=== PATIENT | female | born 1945 | race Caucasian/White ===

== ENCOUNTER 2018-09-13 10:49 | Observation (INO) | payer MEDICARE, OTHER ==
[~2018-09-13] VITALS: Ht 165.1 cm; Wt 76.9 kg
--- OUTSIDE RECORDS SUMMARY | 2018-09-13 10:54 | XMS REPORT ---
Author Author [facility] Address Unknown Phone Unavailable Care Team Providers Care Cleaning Crew Member Name Role Phone Unavailable Unavailable Payers Payer Name Policy Type Policy Number Effective Date Expiration Date Problems This patient has no known problems. Allergies, Adverse Reactions, Alerts Allergy Name Allergy Type Status Severity Reaction(s) Onset Date Inactive Date Treating Clinician Comments codeine DA Active U 2016-05-17 00:00:00 warfarin sodium DA Active SV 2011-05-30 00:00:00 Medications This patient has no known medications. Encounters Start Date/Time End Date/Time Encounter Type Admission Type Attending Clinicians Care Facility Care Department Encounter ID 2005-11-10 14:02:00 Inpatient C [facility] [id number]
[2018-09-13 11:50] LABS: BASOPHILS # (AUTO) 0.1 (0.0-0.1); BASOPHILS % 0.4 % (0.0-1.0); EOSINOPHILS # (AUTO) 0.3 (0.0-0.4); EOSINOPHILS % 2.5 % (0.0-6.0); HEMOGLOBIN 7.7 g/dL (12.0-16.0); LYMPHOCYTES # (AUTO) 2.3 (1.0-3.2); LYMPHOCYTES % 20.2 % (18.0-39.1); MEAN CORPUSCULAR HEMOGLOBIN 16.7 pg (28-32); MEAN CORPUSCULAR HGB CONC 25.7 g/dL (31-35); MEAN CORPUSCULAR VOLUME 64.9 fL (81-99); MONOCYTES # (AUTO) 0.8 (0.2-0.8); MONOCYTES % 7.3 % (4.4-11.3); NEUTROPHILS # (AUTO) 7.7 (2.1-6.9); NEUTROPHILS % 69.2 % (38.7-80.0); PLATELET COUNT 286 x10e3/uL (140-360); RED BLOOD COUNT 4.62 x10e6/uL (3.6-5.1); RED CELL DISTRIBUTION WIDTH 20.9 % (11.7-14.4)
[2018-09-13] MEDS ORDERED: PANTOPRAZOLE 40 MG 10ML VIAL IV STA (11:51)
[2018-09-13 11:58] LABS: INR 1.33; PROTHROMBIN TIME 17.6 seconds (11.9-14.5)
[2018-09-13 11:59] LABS: PARTIAL THROMBOPLASTIN TIME 34.4 seconds (23.8-35.5)
[2018-09-13] MEDS ORDERED: ALBUTEROL/IPRATROPIUM 3 ML NEB NEB ONE (12:00)
[2018-09-13] MEDS ORDERED: SODIUM CHLORIDE 0.9% 500ML 500 ML IV ONE (12:00)
[2018-09-13 12:08] LABS: ALBUMIN 3.2 g/dL (3.5-5.0); ALBUMIN/GLOBULIN RATIO 0.9 (0.8-2.0); ANION GAP 16.2 mmol/L (8-16); CALCIUM 9.5 mg/dL (8.4-10.2); CREATININE, SERUM 1.2 mg/dL (0.57-1.11); POTASSIUM 4.2 mmol/L (3.5-5.1)
[2018-09-13 12:13] LABS: CREATINE KINASE MB 1.2 ng/mL (0-5.0)
[2018-09-13] MEDS ORDERED: ELIQUIS PO (12:26)
[2018-09-13] MEDS ORDERED: VITAMIN D35000 UNI1 PO (12:26)
[2018-09-13] MEDS ORDERED: ASPIR 8181 MG PO (12:26)
[2018-09-13] MEDS ORDERED: METOPROLOL SUCC50 MG PO (12:26)
[2018-09-13] MEDS ORDERED: LEVEMIR100 UNIT/1 SQ ×2 (12:26)
[2018-09-13] MEDS ORDERED: CYMBALTA20 MG PO (12:26)
[2018-09-13] MEDS ORDERED: LISINOPRIL10 MG PO (12:26)
[2018-09-13] MEDS ORDERED: STOOL SOFTENER1 EAC2 PO (12:26)
[2018-09-13] MEDS ORDERED: TYLENOL WITH C1 EAC1 PO (12:26)
[2018-09-13] MEDS ORDERED: VITAMIN C500 MG PO (12:26)
[2018-09-13] MEDS ORDERED: FUROSEMIDE40 MG PO (12:26)
[2018-09-13 12:59] LABS: BILIRUBIN,URINE NEGATIVE (NEGATIVE); CLARITY,URINE SL CLOUDY (CLEAR); COLOR,URINE YELLOW (YELLOW); KETONES,URINE NEGATIVE (NEGATIVE); LEUKOCYTE ESTERASE ,URINE TRACE (NEGATIVE); NITRITE,URINE NEGATIVE (NEGATIVE); PROTEIN,URINE DIPSTICK NEGATIVE (NEGATIVE); URINE UROBILINOGEN 0.2 mg/dL (0.2 - 1)
[2018-09-13] MEDS ORDERED: SODIUM CHLORIDE 0.9% 250ML 250 ML IV ONE (13:00)
[2018-09-13] MEDS ORDERED: ONDANSETRON HCL INJ 2 MG/ML VIAL IV PRN (13:00)
[2018-09-13] MEDS ORDERED: SODIUM CHLORIDE FLUSH 10 ML SYR INJ PRN (13:00)
[2018-09-13 13:19] LABS: BACTERIA,URINE MODERATE /HPF; EPITHELIAL CELLS,URINE MODERATE /LPF
[2018-09-13] MEDS ORDERED: SODIUM CHLORIDE 0.9% 250ML 250 ML ONE (13:59)
[2018-09-13 15:29] VITALS: BP 188/79
[2018-09-13 16:16] VITALS: BP 167/74
[2018-09-13] MEDS: BALSAM PERU/CASTOR OIL 60 GM OINT...G. TP SCH (16:16)
[2018-09-13] MEDS: PANTOPRAZOL 40MG/SOD CHL 0.9% 50 ML IV SCH ×2 (17:45→21:17)
[2018-09-13 20:00] VITALS: BP 190/80
[2018-09-13] MEDS ORDERED: NON-FORMULARY MEDICATION (Ascorbic Acid (Vitamin C) 1 CAP) PO SCH (21:00)
[2018-09-13] MEDS ORDERED: INSULIN DETEMIR 70 UNIT SQ SCH (21:00)
[2018-09-13] MEDS: ASCORBIC ACID 500 MG TAB PO SCH (21:33)
[2018-09-13] MEDS: DULOXETINE HCL 20 MG DELAYED RELEASE PO SCH (21:33)
[2018-09-13] MEDS: INSULIN DETEMIR 100 UNIT/ML PEN SQ SCH (21:33)
[2018-09-13] MEDS: ACETAMINOPHEN/CODEINE 300MG - 30MG TAB PO PRN (21:35)
[2018-09-14] VITALS (8 sets, daily range): BP systolic 135–183; BP diastolic 74–81
[2018-09-14] MEDS ORDERED: NON-FORMULARY MEDICATION (Acetaminophen With Codeine (Tylenol With Codeine #4 Tablet) 1 TA PO SCH
[2018-09-14] MEDS ORDERED: ACETAMINOPHEN/CODEINE 300MG - 30MG TAB PO SCH
[2018-09-14] MEDS: PANTOPRAZOL 40MG/SOD CHL 0.9% 50 ML IV SCH ×5 (02:35→22:21)
[2018-09-14 05:45] LABS: BASOPHILS % 0.5 % (0.0-1.0); EOSINOPHILS # (AUTO) 0.3 (0.0-0.4); EOSINOPHILS % 3.5 % (0.0-6.0); HEMATOCRIT 28.2 % (34.2-44.1); HEMOGLOBIN 7.5 g/dL (12.0-16.0); LYMPHOCYTES % 24.1 % (18.0-39.1); MEAN CORPUSCULAR HEMOGLOBIN 17.5 pg (28-32); MEAN CORPUSCULAR HGB CONC 26.6 g/dL (31-35); MEAN CORPUSCULAR VOLUME 65.9 fL (81-99); MONOCYTES # (AUTO) 0.6 (0.2-0.8); MONOCYTES % 6.6 % (4.4-11.3); NEUTROPHILS # (AUTO) 5.4 (2.1-6.9); NEUTROPHILS % 64.9 % (38.7-80.0); PLATELET COUNT 232 x10e3/uL (140-360); RED BLOOD COUNT 4.28 x10e6/uL (3.6-5.1); RED CELL DISTRIBUTION WIDTH 20.9 % (11.7-14.4)
--- NOTE | 2018-09-14 05:49 | Diagnostic Imaging Report ---
CHEST SINGLE (PORTABLE), 09/14/2018 7:00 AM Technique: CHEST SINGLE (PORTABLE) Comparison: None available. Clinical history: Shortness of breath Findings: Single portable radiograph of the chest. Impression: 1. Mildly enlarged cardiac silhouette status post median sternotomy. Broken superior sternotomy wire. 2. Central vascular congestion. No consolidation. 3. No effusion or pneumothorax. Signed by: Dr Linh Daniel MD on 09/14/2018 5:46 AM
[2018-09-14 06:05] LABS: ANION GAP 14.6 mmol/L (8-16); CREATININE, SERUM 1.11 mg/dL (0.57-1.11); POTASSIUM 3.6 mmol/L (3.5-5.1)
[2018-09-14 06:28] LABS: CREATINE KINASE MB 0.9 ng/mL (0-5.0)
[2018-09-14 06:34] LABS: HEMATOCRIT 28.3 % (34.2-44.1); HEMOGLOBIN 7.6 g/dL (12.0-16.0)
[2018-09-14 07:29] LABS: BAND NEUTROPHILS % (MANUAL) 2 %; MONOCYTES % (MANUAL) 5 % (3.4-9.0); NEUTROPHILS % (MANUAL) 69 % (40-74)
[2018-09-14 07:30] LABS: EOSINOPHILS % (MANUAL) 3 % (0-7); LYMPHOCYTES % (MANUAL) 21 % (19-48); PLATELET ESTIMATE ADEQUATE; PLATELET MORPHOLOGY COMMENT NORMAL
[2018-09-14] MEDS: INSULIN DETEMIR 100 UNIT/ML PEN SQ SCH ×2 (07:30→20:56)
[2018-09-14] MEDS ORDERED: INSULIN REGULAR, HUMAN 100 UNIT/1 ML 3ML VIAL SQ SCH (07:30)
[2018-09-14] MEDS ORDERED: INSULIN DETEMIR 100 UNIT SQ SCH (07:30)
[2018-09-14 07:31] LABS: HYPOCHROMASIA MODERATE; POLYCHROMASIA FEW
[2018-09-14 07:32] LABS: MICROCYTOSIS SLIGHT; OVALOCYTES FEW; RBC MORPHOLOGY COMMENT ABNORMAL
[2018-09-14] MEDS ORDERED: PANTOPRAZOLE 40 MG 10ML VIAL IV SCH (09:00)
[2018-09-14] MEDS ORDERED: NON-FORMULARY MEDICATION ([Eliquis] 5 MG) PO SCH (09:00)
[2018-09-14] MEDS: APIXABAN 5 MG TABLET PO SCH (09:00)
[2018-09-14] MEDS ORDERED: NON-FORMULARY MEDICATION (Cholecalciferol (Vitamin D3) (Vitamin D3) 1 CAP) PO SCH (09:00)
[2018-09-14] MEDS: FUROSEMIDE 40 MG TAB PO SCH (09:05)
[2018-09-14] MEDS: ASPIRIN 81 MG CHEW TAB PO SCH (09:05)
[2018-09-14] MEDS: LISINOPRIL 10 MG TAB PO SCH (09:07)
[2018-09-14] MEDS: METOPROLOL SUCCINATE 50 MG TAB XL PO SCH ×2 (09:08→17:26)
[2018-09-14] MEDS: SENNA-S TABLET PO SCH ×2 (09:08→17:25)
[2018-09-14] MEDS: CHOLECALCIFEROL 1,000 UNIT TAB PO SCH (09:08)
[2018-09-14] MEDS: BALSAM PERU/CASTOR OIL 60 GM OINT...G. TP SCH ×2 (09:08→17:26)
[2018-09-14] MEDS: ACETAMINOPHEN/CODEINE 300MG - 30MG TAB PO PRN ×3 (09:33→23:54)
[2018-09-14] MEDS: INSULIN REGULAR, HUMAN 100 UNIT/1 ML 3ML VIAL SQ SCH ×3 (12:00→20:55)
[2018-09-14] MEDS ORDERED: DEXTROSE 50% SYRINGE 50 ML IV PRN (12:30)
[2018-09-14] MEDS ORDERED: FAMOTIDINE INJ 20 MG in SODIUM CHLORIDE 0.9% 50ML 50 ML IV ONE (13:00)
[2018-09-14] MEDS ORDERED: DIPHENHYDRAMINE HCL INJ 25 MG in SODIUM CHLORIDE 0.9% 50ML 50 ML IV ONE ×2 (13:00→13:45)
[2018-09-14] MEDS ORDERED: IRON DEXTRAN INJ 500 MG in SODIUM CHLORIDE 0.9% 500ML 500 ML IV PRN ×4 (13:00)
[2018-09-14] MEDS ORDERED: DEXAMETHASONE PHOS 10MG INJ 20 MG in SODIUM CHLORIDE 0.9% 50ML 50 ML IV ONE (13:00)
[2018-09-14] MEDS ORDERED: IRON DEXTRAN INJ 50 MG in SODIUM CHLORIDE 0.9% 100 ML IV ONE ×2 (13:00→14:30)
[2018-09-14 13:37] LABS: HEMATOCRIT 28.7 % (34.2-44.1); HEMOGLOBIN 7.5 g/dL (12.0-16.0)
[2018-09-14] MEDS ORDERED: KEFLEX500 MG (14:07)
--- NOTE | 2018-09-14 16:35 | Diagnostic Imaging Report ---
EXAM: CT Abdomen and Pelvis WITH contrast INDICATION: low hbg COMPARISON: None. TECHNIQUE: Abdomen and Pelvis was scanned utilizing a multidetector helical scanner after administration of IV contrast. Coronal and sagittal reformations were obtained. IV CONTRAST: 100 ml Isovue 370 COMPLICATIONS: None RADIATION DOSE: Total DLP:539 mGy*cm Estimated effective dose: (DLP x 0.015 x size factor) mSv CTDIvol has been reviewed. It is below the limits set by the Radiation Protocol Committee (RPC). Appropriate CT dose reduction techniques were utilized. FINDINGS: Abdomen: Lung Bases: No acute findings. Solid Organs: 54mm cyst left kidney. Cholecystectomy clips with reservoir phenomenon. Otherwise unremarkable. Upper GI Tract: Decompressed stomach limits. No SBO changes. Vascularity: IVC filter. Advanced aortic/mesenteric calcifications. Lymph Nodes: None. Other: Subcutaneous nodules/stranding likely from injections. Infection not excluded. Pelvis: Bladder: Unremarkable. Other: Uterus absent. Fat containing inguinal hernias. Colon: No acute. Bones: T11 vertebroplasty changes. Partial fusion L3/4. IMPRESSION: 1. Subcutaneous nodules/stranding likely from injections. Infection not excluded. 2. Other findings as above. Signed by: Dr. Juan Antonio Nelson MD on 09/14/2018 4:32 PM
[2018-09-14] MEDS ORDERED: IOPAMIDOL 370 MG/ML 200 ML INFUS..BTL INJ ONE (17:46)
[2018-09-14] MEDS ORDERED: SODIUM CHLORIDE 0.9% 50ML 50 ML ONE (17:46)
[2018-09-14] MEDS: DULOXETINE HCL 20 MG DELAYED RELEASE PO SCH (20:17)
[2018-09-14] MEDS: ASCORBIC ACID 500 MG TAB PO SCH (20:17)
[2018-09-15] VITALS (7 sets, daily range): BP systolic 133–177; BP diastolic 48–69
[2018-09-15] MEDS: PANTOPRAZOL 40MG/SOD CHL 0.9% 50 ML IV SCH ×5 (03:15→23:15)
[2018-09-15 05:29] LABS: BASOPHILS % 0.1 % (0.0-1.0); HEMATOCRIT 28.4 % (34.2-44.1); HEMOGLOBIN 7.4 g/dL (12.0-16.0); LYMPHOCYTES # (AUTO) 0.8 (1.0-3.2); LYMPHOCYTES % 9.8 % (18.0-39.1); MEAN CORPUSCULAR HEMOGLOBIN 17.3 pg (28-32); MEAN CORPUSCULAR HGB CONC 26.1 g/dL (31-35); MEAN CORPUSCULAR VOLUME 66.5 fL (81-99); MONOCYTES # (AUTO) 0.2 (0.2-0.8); MONOCYTES % 2.9 % (4.4-11.3); NEUTROPHILS # (AUTO) 6.8 (2.1-6.9); NEUTROPHILS % 85.9 % (38.7-80.0); PLATELET COUNT 203 x10e3/uL (140-360); RED BLOOD COUNT 4.27 x10e6/uL (3.6-5.1); RED CELL DISTRIBUTION WIDTH 21.8 % (11.7-14.4)
[2018-09-15 05:57] LABS: ALBUMIN 2.9 g/dL (3.5-5.0); ANION GAP 13.5 mmol/L (8-16); CALCIUM 9.4 mg/dL (8.4-10.2); CREATININE, SERUM 1.12 mg/dL (0.57-1.11); POTASSIUM 4.5 mmol/L (3.5-5.1)
[2018-09-15] MEDS: ACETAMINOPHEN/CODEINE 300MG - 30MG TAB PO PRN ×3 (06:04→18:10)
[2018-09-15] MEDS: INSULIN DETEMIR 100 UNIT/ML PEN SQ SCH ×2 (07:30→21:29)
[2018-09-15 08:03] LABS: FERRITIN 21.21 ng/mL (4.63-204.00)
[2018-09-15] MEDS: LISINOPRIL 10 MG TAB PO SCH (08:56)
[2018-09-15] MEDS: SENNA-S TABLET PO SCH ×2 (08:56→17:00)
[2018-09-15] MEDS: APIXABAN 5 MG TABLET PO SCH (08:56)
[2018-09-15] MEDS: FUROSEMIDE 40 MG TAB PO SCH (08:56)
[2018-09-15] MEDS: ASPIRIN 81 MG CHEW TAB PO SCH (08:56)
[2018-09-15] MEDS: CHOLECALCIFEROL 1,000 UNIT TAB PO SCH (08:57)
[2018-09-15] MEDS: METOPROLOL SUCCINATE 50 MG TAB XL PO SCH ×2 (08:57→18:16)
[2018-09-15] MEDS: BALSAM PERU/CASTOR OIL 60 GM OINT...G. TP SCH ×2 (08:57→16:45)
[2018-09-15] MEDS: INSULIN REGULAR, HUMAN 100 UNIT/1 ML 3ML VIAL SQ SCH ×4 (08:58→21:29)
[2018-09-15] MEDS ORDERED: SODIUM CHLORIDE 0.9% 250ML 250 ML IV ONE (11:15)
[2018-09-15] MEDS ORDERED: FUROSEMIDE INJ 10 MG/ML 2 ML VIAL IV PRN (11:15)
--- NOTE | 2018-09-15 12:45 | Consultation ---
DATE OF CONSULTATION: September 14, 2018 CONSULTATION TO: Dr. Jaimes. HISTORY OF PRESENT ILLNESS: Mimi Sandoval is a 73-year-old white female who has been referred to me for evaluation of anemia. No history of hematochezia, melena, hematuria, hematemesis, hemoptysis. The patient presented with shortness of breath. HISTORY OF PAST ILLNESSES: History of 2 colonoscopies last year for the same problem of anemia were reported normal, history of CABP, history of congestive heart failure, history of pulmonary embolus. The patient has been on Eliquis. The patient also has had left eye hemorrhage, however, prior to Eliquis. SOCIAL HISTORY: Noncontributory. FAMILY HISTORY: Noncontributory. ALLERGIES: REPORTED NONE. MEDICATIONS: At this time. 1. Protonix. 2. Sodium chloride. 3. Aspirin. 4. Lisinopril. 5. Insulin. 6. Cholecalciferol. 7. Metoprolol. 8. Duloxetine. 9. Lasix. 10. Senna. 11. Eliquis. REVIEW OF SYSTEMS HEENT: Normal. CARDIAC: History of CABP, history of pulmonary embolus. RESPIRATORY: History of congestive heart failure. GI: Multiple colonoscopies. : Normal. MUSCULOSKELETAL: Normal. SKIN AND BREASTS: Normal. NEUROENDOCRINE: History of diabetes mellitus. PHYSICAL EXAMINATION GENERAL: A moderately built female, anemic. NECK: No palpable adenopathy. HEART: Within normal limits. LUNGS: Clear. CABP scar is seen. ABDOMEN: Soft. RECTAL AND VAGINAL: Deferred. CENTRAL NERVOUS SYSTEM: Essentially normal. EXTREMITIES: Essentially normal. LABORATORY DATA: Lab shows a hemoglobin of 7.7, hematocrit 30, extremely low MCV of 64.9, low MCHC of 25.7, high RDW of 20.9 with a white count of 11,100, platelets reported at 286,000. The patient's CMP shows a sodium of 139, potassium 4.2, chloride 101, CO2 of 26, BUN 31, creatinine 1.2, calcium 9.5, bilirubin 0.4, SGOT 36, SGPT 10, alkaline phosphatase 99. BNP high at 722. Total protein of 6.6, albumin 3.2. IMAGING: Consists of a chest x-ray, which showed mildly enlarged cardiac silhouette, broken sternotomy wire, central vascular congestion. IMPRESSION 1. Iron deficiency anemia. 2. Hypoalbuminemia. 3. Congestive heart failure. 4. Urinary tract infection. 5. Anticoagulated. 6. Community-acquired bacterial pneumonia. 7. Diabetes mellitus, insulin-dependent. 8. Hypertension. 9. History of pulmonary embolus. 10. Possible arteriovenous malformation of the gastrointestinal tract. PLAN, COMMENTS AND SUGGESTIONS: Suggest Infed. GI and workup by CAT scan of the abdomen and pelvis which was done which was reported essentially normal. The patient did tolerate the Infed. I will calculate the amount of Infed to be given with a nomogram at the office. Second Infed will be approximately a month at my office. Thank you very much for allowing me to participate in management of this patient. Job#: [id number] STY cc:THADDEUS JAIMES MD
[2018-09-15] MEDS: HYDRALAZINE HCL 20 MG/ML VIAL IV PRN (14:12)
[2018-09-15] MEDS: DULOXETINE HCL 20 MG DELAYED RELEASE PO SCH (21:28)
[2018-09-15] MEDS: ASCORBIC ACID 500 MG TAB PO SCH (21:28)
[2018-09-16] VITALS: BP 144/62
[2018-09-16] MEDS: ACETAMINOPHEN/CODEINE 300MG - 30MG TAB PO PRN ×3 (00:24→12:10)
[2018-09-16 04:00] VITALS: BP 168/71
[2018-09-16] MEDS: PANTOPRAZOL 40MG/SOD CHL 0.9% 50 ML IV SCH ×2 (04:15→10:17)
[2018-09-16] MEDS ORDERED: CEFTRIAXONE SOD 1 GM VIAL IV SCH (04:30)
[2018-09-16 04:53] LABS: HEMATOCRIT 32.6 % (34.2-44.1); HEMOGLOBIN 8.9 g/dL (12.0-16.0); MEAN CORPUSCULAR HEMOGLOBIN 18.8 pg (28-32); MEAN CORPUSCULAR HGB CONC 27.3 g/dL (31-35); MEAN CORPUSCULAR VOLUME 68.8 fL (81-99); PLATELET COUNT 251 x10e3/uL (140-360); RED BLOOD COUNT 4.74 x10e6/uL (3.6-5.1); RED CELL DISTRIBUTION WIDTH 22.9 % (11.7-14.4)
[2018-09-16 05:09] LABS: ANION GAP 11.6 mmol/L (8-16); CALCIUM 9.6 mg/dL (8.4-10.2); CREATININE, SERUM 1.28 mg/dL (0.57-1.11); POTASSIUM 3.6 mmol/L (3.5-5.1)
[2018-09-16] MEDS ORDERED: DIPHENHYDRAMINE HCL 25 MG CAP PO PRN (05:15)
[2018-09-16 06:27] LABS: BAND NEUTROPHILS % (MANUAL) 2 %; EOSINOPHILS % (MANUAL) 2 % (0-7); LYMPHOCYTES % (MANUAL) 13 % (19-48); MONOCYTES % (MANUAL) 4 % (3.4-9.0); NEUTROPHILS % (MANUAL) 79 % (40-74)
[2018-09-16 06:28] LABS: ANISOCYTOSIS SLIGHT; OVALOCYTES FEW; POIKILOCYTOSIS MODERATE
[2018-09-16 06:29] LABS: ELLIPTOCYTE, RBC SLIGHT; HYPOCHROMASIA SLIG; POLYCHROMASIA FEW
[2018-09-16 06:30] LABS: PLATELET ESTIMATE SLIGHTLY INCREASED; PLATELET MORPHOLOGY COMMENT FEW LARGE; RBC MORPHOLOGY COMMENT ABNORMAL
[2018-09-16 07:18] VITALS: BP 137/65
[2018-09-16 08:50] VITALS: BP 137/65
[2018-09-16] MEDS: BALSAM PERU/CASTOR OIL 60 GM OINT...G. TP SCH (08:50)
[2018-09-16] MEDS: FUROSEMIDE 40 MG TAB PO SCH (08:50)
[2018-09-16] MEDS: LISINOPRIL 10 MG TAB PO SCH (08:50)
[2018-09-16] MEDS: SENNA-S TABLET PO SCH (08:50)
[2018-09-16] MEDS: INSULIN DETEMIR 100 UNIT/ML PEN SQ SCH (08:50)
[2018-09-16] MEDS: ASPIRIN 81 MG CHEW TAB PO SCH (08:50)
[2018-09-16] MEDS: METOPROLOL SUCCINATE 50 MG TAB XL PO SCH (08:50)
[2018-09-16] MEDS: CHOLECALCIFEROL 1,000 UNIT TAB PO SCH (08:50)
[2018-09-16] MEDS: APIXABAN 5 MG TABLET PO SCH (08:50)
[2018-09-16] MEDS: INSULIN REGULAR, HUMAN 100 UNIT/1 ML 3ML VIAL SQ SCH ×2 (08:50→11:30)
[2018-09-16 11:45] VITALS: BP 184/77
[2018-09-16] MEDS: HYDRALAZINE HCL 20 MG/ML VIAL IV PRN (12:27)
[2018-09-16 13:30] VITALS: BP 128/59
== END 2018-09-16 15:45 | disposition home or self-care (01) ==
LOC: ER 10:49 → ERHOLD 14:41 → IMCU 14:53
PROVIDERS: ADMIT Internal Medicine; ATTEND Internal Medicine
DX: D50.9 Iron deficiency anemia, unspecified (principal); N39.0 Urinary tract infection, site not specified; E88.09 Other disorders of plasma-protein metabolism, not elsewhere classified; E11.22 Type 2 diabetes mellitus with diabetic chronic kidney disease; I13.0 Hypertensive heart and chronic kidney disease with heart failure and stage 1 through stage 4 chronic kidney disease, or unspecified chronic kidney disease; I50.9 Heart failure, unspecified; N18.3 Chronic kidney disease, stage 3 (moderate); Z79.4 Long term (current) use of insulin; J44.9 Chronic obstructive pulmonary disease, unspecified; I25.10 Atherosclerotic heart disease of native coronary artery without angina pectoris; K21.9 Gastro-esophageal reflux disease without esophagitis; Z95.1 Presence of aortocoronary bypass graft; Z86.711 Personal history of pulmonary embolism; Z86.718 Personal history of other venous thrombosis and embolism; Z79.82 Long term (current) use of aspirin; Z79.02 Long term (current) use of antithrombotics/antiplatelets; Z88.8 Allergy status to other drugs, medicaments and biological substances
CPT/HCPCS: 36415 ×4; 36430; 71045; 74177; 80048 ×2; 80053 ×2; 81001; 82270; 82550 ×2; 82553 ×2; 82607; 82728; 82948 ×4; 83540; 83880; 84466; 84484 ×2; 85007; 85014; 85018; 85025 ×3; 85027; 85610; 85730; 86850; 86900; 86920; 87086; 87186; 93005 ×2; 94640; 96361; 96372; 97139; 99284; G0378 ×4; J0360 ×2; J0696; J1100; J1200; J1750; J1817; J1940; J7040 ×2; J7050 ×3; P9016 ×2; Q9967; 96360

== ENCOUNTER 2018-10-14 12:58 | Inpatient (IN) | payer MEDICARE, OTHER ==
[~2018-10-14] VITALS: Ht 167.6 cm; Wt 79.1 kg
[~2018-10-14 12:58] MED LIST: ASPIR 8181 MG PO; CYMBALTA20 MG PO; ELIQUIS PO; FUROSEMIDE40 MG PO; KEFLEX500 MG; LEVEMIR100 UNIT/1 SQ; LISINOPRIL10 MG PO; METOPROLOL SUCC50 MG PO; STOOL SOFTENER1 EAC2 PO; TYLENOL WITH C1 EAC1 PO; VITAMIN C500 MG PO; VITAMIN D35000 UNI1 PO
[2018-10-14] MEDS ORDERED: TETANUS/DIPHTHERIA TOX ADULT 0.5 ML SYR IM ONE (14:00)
[2018-10-14] MEDS ORDERED: PIPER-TAZ 3.375 GM 50 ML IV ONE (14:30)
[2018-10-14] MEDS ORDERED: VANCOMYCIN 1GM/NS 250 ML 250 ML IV ONE (14:30)
--- NOTE | 2018-10-14 14:54 | Diagnostic Imaging Report ---
Examination: Single AP view of the chest. COMPARISON: Portable chest 09/14/2018 INDICATION: ] Right foot/Right great toe wound IMPRESSION: 1. Lines and Tubes: None 2. Lungs are grossly clear. No consolidation or effusion. 3. Cardiomediastinal silhouette is normal. Pulmonary vasculature is normal. 4. No acute bony abnormalities. Midline sternotomy wires. Signed by: Dr. Michael Corbin M.D. on 10/14/2018 2:50 PM
--- NOTE | 2018-10-14 14:56 | Diagnostic Imaging Report ---
Exam: Right foot series, 3 views. Clinical History: Right foot, great toe wound, history of diabetes neuropathy Comparison: None. Findings: 3 views of the right foot. There is markedly decreased bone mineralization, which limits evaluation of bony structures.. No acute, displaced fracture or dislocation, within the limitations of the study. No definite evidence of cortical erosion or destruction. Degenerative changes in the interphalangeal joints and midfoot/hindfoot joints. Vascular calcifications. Large posterior and small anterior calcaneal enthesophyte. Orthopedic hardware in the distal tibia likely from prior medial and lateral malleolar fractures No soft tissue defects. Impression: 1. Markedly decreased bone mineralization, which limits evaluation of the bony structures. No definite evidence of cortical erosion or destruction to suggest osteomyelitis or acute, displaced fracture or dislocation, within the limitations of the study. No soft tissue defects. Signed by: Dr. Michael Corbin M.D. on 10/14/2018 2:53 PM
[2018-10-14 15:15] LABS: BILIRUBIN,URINE NEGATIVE (NEGATIVE); CLARITY,URINE SL CLOUDY (CLEAR); COLOR,URINE YELLOW (YELLOW); KETONES,URINE NEGATIVE (NEGATIVE); LEUKOCYTE ESTERASE ,URINE NEGATIVE (NEGATIVE); NITRITE,URINE NEGATIVE (NEGATIVE); PROTEIN,URINE DIPSTICK TRACE (NEGATIVE); URINE UROBILINOGEN 0.2 mg/dL (0.2 - 1)
[2018-10-14 15:24] LABS: BACTERIA,URINE MODERATE /HPF; EPITHELIAL CELLS,URINE MODERATE /LPF; WBC,URINE (MAN) 0-5 /HPF (0-5)
[2018-10-14 15:33] LABS: BASOPHILS # (AUTO) 0.1 (0.0-0.1); BASOPHILS % 0.5 % (0.0-1.0); EOSINOPHILS # (AUTO) 0.2 (0.0-0.4); EOSINOPHILS % 1.9 % (0.0-6.0); HEMATOCRIT 39.2 % (34.2-44.1); HEMOGLOBIN 11.1 g/dL (12.0-16.0); LYMPHOCYTES # (AUTO) 2.5 (1.0-3.2); LYMPHOCYTES % 23.3 % (18.0-39.1); MEAN CORPUSCULAR HEMOGLOBIN 21.8 pg (28-32); MEAN CORPUSCULAR HGB CONC 28.3 g/dL (31-35); MONOCYTES # (AUTO) 0.7 (0.2-0.8); MONOCYTES % 6.3 % (4.4-11.3); NEUTROPHILS # (AUTO) 7.2 (2.1-6.9); NEUTROPHILS % 67.5 % (38.7-80.0); PLATELET COUNT 271 x10e3/uL (140-360); RED BLOOD COUNT 5.09 x10e6/uL (3.6-5.1); RED CELL DISTRIBUTION WIDTH 28.7 % (11.7-14.4)
[2018-10-14 15:38] LABS: INR 1.2; PROTHROMBIN TIME 16.3 seconds (11.9-14.5)
[2018-10-14 15:39] LABS: PARTIAL THROMBOPLASTIN TIME 32.8 seconds (23.8-35.5)
[2018-10-14 15:56] LABS: ALBUMIN 3.1 g/dL (3.5-5.0); ALBUMIN/GLOBULIN RATIO 0.8 (0.8-2.0); ANION GAP 15.4 mmol/L (8-16); CALCIUM 10.2 mg/dL (8.4-10.2); CREATININE, SERUM 1.12 mg/dL (0.57-1.11); MAGNESIUM 1.4 MG/DL (1.3-2.1); POTASSIUM 4.4 mmol/L (3.5-5.1)
[2018-10-14 16:04] LABS: CREATINE KINASE MB 0.8 ng/mL (0-5.0)
[2018-10-14 20:32] LABS: HYPOCHROMASIA MODERATE; PLATELET ESTIMATE ADEQUATE; PLATELET MORPHOLOGY COMMENT NORMAL; RBC MORPHOLOGY COMMENT NORMAL
[2018-10-14] MEDS ORDERED: DEXTROSE 50% SYRINGE 50 ML IV PRN (21:00)
[2018-10-14] MEDS ORDERED: MORPHINE SULFATE 2 MG/ML SYR IV PRN (21:00)
[2018-10-14] MEDS: INSULIN LISPRO 100 UNIT/1 ML 3ML VIAL SQ SCH (21:00)
[2018-10-14] MEDS ORDERED: ONDANSETRON HCL INJ 2 MG/ML VIAL IV PRN (21:00)
[2018-10-14] MEDS ORDERED: PIPER-TAZ 3.375 GM 50 ML ONE (23:43)
[2018-10-14] MEDS ORDERED: TETANUS/DIPHTHERIA TOX ADULT 0.5 ML SYR ONE (23:44)
[2018-10-15] VITALS (8 sets, daily range): BP systolic 125–208; BP diastolic 58–89
[2018-10-15] MEDS ORDERED: HYDROCODONE/APAP 10MG-325MG TAB PO ONE
[2018-10-15] MEDS ORDERED: NIFEDIPINE 10 MG CAP PO ONE (00:44)
[2018-10-15] MEDS ORDERED: NIFEDIPINE 10 MG CAP PO STA (00:54)
[2018-10-15] MEDS ORDERED: fluticasone (01:56)
[2018-10-15] MEDS ORDERED: LYRICA75 MG PO (01:56)
[2018-10-15] MEDS ORDERED: METOPROLOL TART25 MG PO (01:56)
[2018-10-15] MEDS ORDERED: PANTOPRAZOLE SO40 MG PO (01:56)
[2018-10-15] MEDS ORDERED: SYMBICORT 16010.2 GM INH (01:56)
[2018-10-15] MEDS ORDERED: ATORVASTATIN CA20 MG PO (01:56)
[2018-10-15] MEDS ORDERED: SODIUM CHLORIDE 0.9% 250ML 250 ML ONE (03:39)
[2018-10-15] MEDS: INSULIN LISPRO 100 UNIT/1 ML 3ML VIAL SQ SCH ×4 (07:30→21:54)
[2018-10-15 07:52] LABS: BASOPHILS % 0.5 % (0.0-1.0); EOSINOPHILS # (AUTO) 0.2 (0.0-0.4); EOSINOPHILS % 2.8 % (0.0-6.0); HEMATOCRIT 36.9 % (34.2-44.1); HEMOGLOBIN 10.5 g/dL (12.0-16.0); LYMPHOCYTES # (AUTO) 1.9 (1.0-3.2); LYMPHOCYTES % 22.5 % (18.0-39.1); MEAN CORPUSCULAR HEMOGLOBIN 21.8 pg (28-32); MEAN CORPUSCULAR HGB CONC 28.5 g/dL (31-35); MEAN CORPUSCULAR VOLUME 76.6 fL (81-99); MONOCYTES # (AUTO) 0.8 (0.2-0.8); MONOCYTES % 9.4 % (4.4-11.3); NEUTROPHILS # (AUTO) 5.5 (2.1-6.9); NEUTROPHILS % 64.3 % (38.7-80.0); PLATELET COUNT 245 x10e3/uL (140-360); RED BLOOD COUNT 4.82 x10e6/uL (3.6-5.1); RED CELL DISTRIBUTION WIDTH 27.9 % (11.7-14.4)
[2018-10-15 08:12] LABS: ALBUMIN 2.8 g/dL (3.5-5.0); ALBUMIN/GLOBULIN RATIO 0.8 (0.8-2.0); ANION GAP 13.3 mmol/L (8-16); CALCIUM 9.6 mg/dL (8.4-10.2); CREATININE, SERUM 1.09 mg/dL (0.57-1.11); POTASSIUM 4.3 mmol/L (3.5-5.1)
[2018-10-15 08:24] LABS: CREATINE KINASE MB 0.6 ng/mL (0-5.0)
[2018-10-15] MEDS: FUROSEMIDE 40 MG TAB PO SCH (13:40)
[2018-10-15] MEDS: ACETAMINOPHEN/CODEINE 300MG - 30MG TAB PO PRN (16:35)
[2018-10-15] MEDS ORDERED: LISINOPRIL 10 MG TAB PO SCH (17:00)
[2018-10-15] MEDS: PANTOPRAZOLE SOD 40 MG TABEC PO SCH (17:08)
[2018-10-15] MEDS: METOPROLOL TARTRATE 25 MG TAB PO SCH (17:08)
[2018-10-15] MEDS: LISINOPRIL 20 MG TAB PO SCH (17:08)
[2018-10-15] MEDS: PREGABALIN 75 MG CAP PO SCH (17:08)
[2018-10-15] MEDS ORDERED: HYDRALAZINE HCL 25 MG TAB PO PRN (17:30)
--- NOTE | 2018-10-15 18:02 | History and Physical ---
PRIMARY CARE PROVIDER: Dr. Diamond Alba. CONSULTANTS 1. Dr. Laurent Silva. 2. Dr. Parr. CHIEF COMPLAINT: Right great toe infected diabetic foot ulcer with possible osteomyelitis. Peripheral vascular disease. SUMMARY: A 73-year-old female came in with a 3 to 4-day history of right great toe infection ulcer with some necrosis. The patient does have diabetes on oral medication. She is otherwise stable. This has been going on for the past few days. The patient having some pain to the right great toe as well. PAST MEDICAL HISTORY: Diabetes type 2, hypertension, peripheral vascular disease, COPD, coronary artery disease with previous bypass surgery x3 vessels, ex-smoker. PAST SURGICAL HISTORY: Coronary artery bypass surgery x3 vessels in 2009, right ankle surgery, tonsillectomy, appendectomy, hysterectomy, and gallbladder surgery. SOCIAL HISTORY: Patient was an ex-smoker many years ago. She denies alcohol usage. No recreational drugs. ALLERGIES: TO WARFARIN. MEDICATIONS: List is reviewed. REVIEW OF SYSTEMS: Right foot great toe pain ischemia. PHYSICAL EXAMINATION GENERAL: Patient is not in acute distress. He is awake. VITAL SIGNS: Temperature is 97, blood pressure 170/64, pulse rate 92, respirations 22. HEENT: Normocephalic, atraumatic, is anicteric. NECK: Supple grossly. PULMONARY: Diminished breath sounds without any wheezing or rales. CARDIOVASCULAR: S1 and S2. Regular rate, rhythm. ABDOMEN: Soft. Positive bowel sounds. Grossly nontender. Non-distention. EXTREMITIES: Right great toe ischemia with infected diabetic foot ulcer. Possible osteomyelitis. NEUROLOGIC: Diabetic neuropathy without any gross focal deficit. LABORATORY: Sodium is 142, potassium 4.3, chloride 104, bicarb 29, BUN 22, creatinine 1.09, glucose 187. WBC is 8.6, hemoglobin 10.5, hematocrit 36.9, platelets 245. INR is 1.20. Liver enzymes are normal. IMPRESSIONS 1. Infected right diabetic foot ulcer great toe with osteomyelitis on imaging test. 2. Peripheral vascular disease. 3. Diabetes type 2. 4. Hypertension with coronary disease with previous bypass surgery. PLAN: Zosyn and IV vancomycin. Consultation with Dr. Laurent Silva. Consultation with Dr. Parr. Arterial Doppler of the right lower extremity. Insulin sliding scale coverage. Home medications, pain control, DVT prophylaxis. Job#: [id number] TA
[2018-10-15 18:23] LABS: CREATINE KINASE MB 1.4 ng/mL (0-5.0)
[2018-10-15] MEDS: PIPER-TAZ 3.375 GM 50 ML IV SCH ×2 (18:50→23:13)
[2018-10-15] MEDS: VANCOMYCIN 1GM/NS 250 ML 250 ML IV SCH (18:50)
[2018-10-15] MEDS: BUDESONIDE/FORMOTEROL 160/4.5MCG INHALER INH SCH (19:45)
[2018-10-15] MEDS: DULOXETINE HCL 20 MG DELAYED RELEASE PO SCH (21:00)
[2018-10-15] MEDS ORDERED: ATORVASTATIN 20 MG TAB PO SCH (21:00)
[2018-10-15] MEDS: ATORVASTATIN 40 MG TAB PO SCH (21:31)
[2018-10-16] VITALS (7 sets, daily range): BP systolic 135–178; BP diastolic 54–86
[2018-10-16] MEDS: ACETAMINOPHEN/CODEINE 300MG - 30MG TAB PO PRN ×3 (02:56→19:45)
[2018-10-16] MEDS: PIPER-TAZ 3.375 GM 50 ML IV SCH ×4 (05:03→23:56)
[2018-10-16 05:35] LABS: ANION GAP 13.1 mmol/L (8-16); CALCIUM 8.9 mg/dL (8.4-10.2); CREATININE, SERUM 1.35 mg/dL (0.57-1.11); POTASSIUM 4.1 mmol/L (3.5-5.1)
[2018-10-16 05:57] LABS: CHOL/HDL RATIO 3.8 (3.0-3.6)
[2018-10-16 06:16] LABS: THYROID STIMULATING HORMONE 0.588 uIU/mL (0.350-4.940)
[2018-10-16] MEDS: BUDESONIDE/FORMOTEROL 160/4.5MCG INHALER INH SCH ×2 (07:07→20:02)
[2018-10-16] MEDS: INSULIN LISPRO 100 UNIT/1 ML 3ML VIAL SQ SCH ×4 (08:00→20:46)
[2018-10-16] MEDS: PREGABALIN 75 MG CAP PO SCH ×2 (08:36→16:27)
[2018-10-16] MEDS: PANTOPRAZOLE SOD 40 MG TABEC PO SCH ×2 (08:36→16:26)
[2018-10-16] MEDS: METOPROLOL TARTRATE 25 MG TAB PO SCH ×2 (08:36→16:27)
[2018-10-16] MEDS: CADEXOMER IODINE 30 GM TUBE TOP SCH (08:36)
[2018-10-16] MEDS: ASPIRIN 81 MG CHEW TAB PO SCH (08:36)
[2018-10-16] MEDS: FUROSEMIDE 40 MG TAB PO SCH (08:36)
[2018-10-16] MEDS: LISINOPRIL 20 MG TAB PO SCH ×2 (08:36→16:27)
--- NOTE | 2018-10-16 10:04 | Consultation ---
DATE OF CONSULTATION: October 16, 2018 REASON FOR CONSULTATION: Gangrenous changes noted to the right great toe for several weeks now. HISTORY OF PRESENT ILLNESS: This is a pleasant, 73-year-old white female who relates that the toe turned somewhat discolored after Theresa after she wore a new pair of house shoes. She is denying any history of fever, chills, nausea, or vomiting. PAST MEDICAL HISTORY: Remarkable for insulin-dependent diabetes, hypertension, hypercholesterolemia, congestive heart failure, COPD, with a CVA which affected the right side. PAST SURGICAL HISTORY: Remarkable for right ankle surgery, cholecystectomy, hysterectomy, tonsillectomy and triple heart bypass. ALLERGIES: WARFARIN. CURRENT MEDICATIONS: Note list in the chart, including IV Zosyn and vancomycin. SOCIAL HISTORY: Smokes a half a pack a day. Denies any alcohol or recreational drug use. Lives with her daughter, has 3 kids. FAMILY HISTORY: Remarkable for diabetes. REVIEW OF SYSTEMS CARDIAC: She is denying any palpitations or arrhythmias. RESPIRATORY: Denies any shortness of breath or productive cough. GASTROINTESTINAL: Denies any diarrhea or constipation. GENITOURINARY: Denies hematuria or problems voiding. VITALS: Afebrile, pulse rate 61, respirations 16, blood pressure 135/54, O2 saturation 98%. LABS: Noted. Has a white blood cell count of 8.5, hemoglobin 10.5, hematocrit 36.9 with a platelet count of 245. PODIATRIC PHYSICAL EXAMINATION VASCULAR: Pedal pulses both the DP and PT seem to be diminished. Skin temperature warm to cool to touch. NEUROLOGIC: Examination reveals a loss of protective sensation when utilizing [place]-Tolu 5.07 monofilament wire. MUSCULOSKELETAL: Examination shows muscle mass to be symmetrical and strength to be 4/5 to all muscle groups of the right foot and 5/5 to all left. Dry gangrenous changes overlying the distal aspect of the right great toe. Has an ulceration, grade 1 to grade 2, to the plantar aspect of the 1st metatarsal head secondary to plantarflexed 1st metatarsal with erythema surrounding the medial aspect of the 1st MPJ. Also has contracted digits 2 through 5 of the right foot. ASSESSMENT: Dry gangrene, hallux valgus deformity with a grade 1/2 ulceration, right foot. PLAN: Will await Dr. Selby's evaluation for vascular supply. Will start diluted wet-to-dry Betadine. Depending on vascular supply, surgery will be attempted. Surgery will consist of a possible partial amputation of the toe, Silver bunionectomy with possible elevating osteotomy. Job#: [id number]
[2018-10-16] MEDS: MORPHINE SULFATE INJ 4 MG/ML INJ IV PRN (11:39)
[2018-10-16] MEDS: ENOXAPARIN SOD INJ 40 MG/0.4 ML SYR SC SCH (16:27)
[2018-10-16] MEDS: VANCOMYCIN 1GM/NS 250 ML 250 ML IV SCH (16:27)
[2018-10-16] MEDS: ATORVASTATIN 40 MG TAB PO SCH (20:32)
[2018-10-16] MEDS: DULOXETINE HCL 20 MG DELAYED RELEASE PO SCH (21:00)
--- NOTE | 2018-10-16 23:31 | Consultation ---
DATE OF CONSULTATION: October 16, 2018 CARDIOLOGY CONSULTATION REFERRING PHYSICIAN: Dr. Francisco Rich. REASON FOR CONSULTATION: Foot wound. HISTORY OF PRESENT ILLNESS: Ms. Sandoval is a 73-year-old woman with history of hypertension, diabetes mellitus, dyslipidemia, who presents to [facility] for progressive worsening and discoloration of ulceration to the right 1st toe, blackish discoloration over a course of various weeks, more pronounced in the last several days. She has a history of CAD, status post aortocoronary bypass as well as a history of peripheral vascular disease with prior revascularization to the right left lower extremity. She denies any chest discomfort or shortness of breath. She has been advised in the past to proceed with revascularization to the right lower extremity due to residual significant peripheral vascular disease, but she had opted against it in the past. REVIEW OF SYSTEMS: Twelve-system review negative except for as noted above. ALLERGIES: ALLERGY QUOTED TO WARFARIN. PAST MEDICAL HISTORY: As per HPI, PAD, CAD, hypertension, dyslipidemia. SOCIAL HISTORY: No alcohol or drugs. Smoker from history. FAMILY HISTORY: Noncontributory. CARDIOVASCULAR MEDICATIONS: Reviewed. 1. Lisinopril 20 mg b.i.d. 2. Atorvastatin 40 mg nightly. 3. Lovenox 40 mg subcutaneous daily. 4. Aspirin 81 mg daily. 5. Hydralazine 25 mg every 4 hours. 6. Metoprolol tartrate 25 mg b.i.d. 7. Furosemide 40 mg daily. PHYSICAL EXAMINATION: VITALS: Temperature 98.4, heart rate 61, blood pressure 135/54, respiratory rate 16, O2 sat 98%, BMI 26.6. GENERAL: In no acute distress. Alert. NECK: No JVD. Bilateral carotid bruits. CHEST: Clear to auscultation. CARDIOVASCULAR: Regular rate and rhythm. Normal S1 and S2. No S3, no S4. No murmurs. No rubs. Sternotomy scar noted. ABDOMEN: Soft, nontender. EXTREMITIES: No edema. Right first toe with black discoloration and surrounding erythema. Abnormal dorsalis pedis and posterior tibial pulses. Right popliteal pulses palpable. STUDIES: Reviewed. Sodium 140, potassium 4.1, chloride 103, bicarbonate 28, BUN 24, creatinine 1.35, glucose 171. White blood cells 8.5, hemoglobin 10.5, platelets 245,000. INR is 1.2. PT 16.3, PTT 32.8. AST 16, ALT 11, alk phos 98, total bilirubin 0.7. ASSESSMENT 1. Peripheral arterial disease with chronic critical limb ischemia of the right lower extremity. 2. Diabetic foot ulcer and gangrene. 3. Diabetes mellitus. 4. Coronary artery disease, status post aortocoronary bypass. 5. Hypertension. 6. Dyslipidemia. 7. Prior revascularization to the left lower extremity reported. RECOMMENDATIONS: 1. Lower extremity arterial Doppler has been ordered and is currently pending. The patient is anemic, consider workup. 2. Continue current cardiovascular medications. 3. Anticipate likely angiography and possible endovascular revascularization to the right lower extremity during this admission. Will discuss further with patient once Doppler results are available. 4. As outpatient workup for carotid bruits is enticed and has been recommended to the patient. Job#: [id number]
[2018-10-17] VITALS (8 sets, daily range): BP systolic 146–196; BP diastolic 59–84
[2018-10-17] MEDS: MORPHINE SULFATE INJ 4 MG/ML INJ IV PRN ×4 (00:58→20:10)
[2018-10-17] MEDS: PIPER-TAZ 3.375 GM 50 ML IV SCH ×4 (05:58→23:37)
[2018-10-17] MEDS: BUDESONIDE/FORMOTEROL 160/4.5MCG INHALER INH SCH ×2 (07:48→20:16)
[2018-10-17] MEDS: ASPIRIN 81 MG CHEW TAB PO SCH (08:58)
[2018-10-17] MEDS: PANTOPRAZOLE SOD 40 MG TABEC PO SCH ×2 (08:58→16:38)
[2018-10-17] MEDS: FUROSEMIDE 40 MG TAB PO SCH (08:58)
[2018-10-17] MEDS: LISINOPRIL 20 MG TAB PO SCH (08:59)
[2018-10-17] MEDS: INSULIN LISPRO 100 UNIT/1 ML 3ML VIAL SQ SCH ×3 (08:59→21:00)
[2018-10-17] MEDS: METOPROLOL TARTRATE 25 MG TAB PO SCH ×2 (08:59→16:39)
[2018-10-17] MEDS: PREGABALIN 75 MG CAP PO SCH ×2 (08:59→16:39)
--- NOTE | 2018-10-17 09:23 | Progress Note ---
DATE: October 17, 2018 SUBJECTIVE: Patient seen at bedside. Doing somewhat better. Denies history fever, chills, nausea, or vomiting. OBJECTIVE VITALS: Afebrile. Vital signs stable. EXTREMITIES: Gangrenous changes noted to the right great toe with cellulitis overlying the 1st metatarsophalangeal joint. Pedal pulses are diminished. ASSESSMENT: Gangrene, capsulitis, hallux valgus deformity, contracted hammertoes with peripheral artery disease. PLAN: Patient will be undergoing possible angiogram with angioplasty tomorrow. Will continue local wound care. Continue IV antibiotics. Once vascular procedures are performed, surgical intervention will be done some time next week. Will let the foot demarcate before any surgery is attempted. Job#: [id number] BUZZ
[2018-10-17] MEDS ORDERED: NIFEDIPINE CR 30 MG TAB PO NR (09:30)
[2018-10-17] MEDS ORDERED: INSULIN DETEMIR 100 UNIT/ML PEN SQ NR (09:30)
[2018-10-17] MEDS: CADEXOMER IODINE 30 GM TUBE TOP SCH (09:45)
[2018-10-17] MEDS: SODIUM CHLORIDE 0.45% 1,000 ML IV SCH (11:00)
[2018-10-17 13:07] LABS: FREE T4 (FREE THYROXINE) 0.95 ng/dL (0.9-1.8); THYROID STIMULATING HORMONE 1.1 uIU/mL (0.350-4.940)
--- NOTE | 2018-10-17 14:03 | Consultation ---
DATE OF CONSULTATION: October 17, 2018 ENDOCRINE CONSULTATION This is a patient of Dr. Rich. Thank you very much for referring this patient. This is a 73-year-old white female who is referred to me for evaluation of uncontrolled diabetes mellitus. Patient reportedly is a known diabetic for almost 25 years, and she takes Lantus insulin 100 in the morning and 70 at bedtime. She came to the hospital with history of right foot gangrene and ulcer and is being evaluated for the same. She also has a history of hypertension. She is on several medications at home including lisinopril, Lipitor 40 mg once daily, hydralazine and metoprolol. PHYSICAL EXAMINATION GENERAL: Today, the patient is alert, awake, a little bit apprehensive. VITALS: Heart rate is around 78. Blood pressure 146/86 mmHg. HEENT: Essentially unremarkable. Thyroid is palpable. Clinically she is near euthyroid. CHEST: Bilateral vesicular breathing. No rales. CARDIAC: First and 2nd heart sounds. There is no 3rd or 4th heart sounds. Ejection systolic murmur grade 2/6. EXTREMITIES: The patient has evidence of diabetic sensory neuropathy in both lower extremities. Her blood sugars have been ranging in the 300 to 340 range. CLINICAL IMPRESSION: Diabetes mellitus type 2 uncontrolled, gangrene and ulcer of right foot, hypertension and hyperlipidemia. PLAN: At this time is to do a hemoglobin A1c and thyroid function test, and put her back on the Levemir and Humalog insulin. Thanks for referring this patient. I will be following this patient with you. Job#: [id number] CLAUDE ALEXANDRA
[2018-10-17] MEDS ORDERED: SODIUM CHLORIDE 0.9% 1000ML 1,000 ML IV SCH (14:29)
[2018-10-17] MEDS ORDERED: INSULIN LISPRO 100 UNIT/1 ML 3ML VIAL SQ SCH (16:30)
[2018-10-17] MEDS: ENOXAPARIN SOD INJ 40 MG/0.4 ML SYR SC SCH (17:00)
[2018-10-17] MEDS: VANCOMYCIN 1GM/NS 250 ML 250 ML IV SCH ×2 (17:41→17:50)
--- NOTE | 2018-10-17 18:00 | Progress Note ---
DATE: October 17, 2018 CARDIOLOGY PROGRESS NOTE SUBJECTIVE: No complaints. Proceed with peripheral angiography and intervention to the right lower extremity given abnormal Doppler ultrasound findings concerning for multilevel severe peripheral vascular disease, femoral popliteal, as well as the . Indications, alternatives, risks, and benefits were discussed. The patient agrees. Will schedule. OBJECTIVE VITALS: Temperature 96.2, heart rate 70, blood pressure 173/75, respiratory rate 20, O2 sat 93%. GENERAL: In no acute distress. Alert. NECK: No JVD. CHEST: Clear to auscultation. CARDIOVASCULAR: Regular rate and rhythm. Normal S1 and S2. ABDOMEN: Soft. EXTREMITIES: No edema. Normal dorsalis pedis and posterior tibial pulses bilaterally. Right 1st toe ulceration with loss of toenail and black discoloration. CARDIOVASCULAR MEDICATIONS: Reviewed. 1. Aspirin 81 mg daily. 2. Lovenox 40 mg subcutaneous daily. 3. Atorvastatin 40 mg at bedtime. 4. Metoprolol tartrate 25 mg b.i.d. STUDIES: Reviewed. Creatinine is 1.35. Hemoglobin 10.5, white blood cells 8.5 and platelets 245,000. INR 1.2. ASSESSMENT 1. Coronary artery disease with history of aortocoronary bypass. 2. Chronic heart failure, unspecified. 3. Diabetes mellitus. 4. Hypertension. 5. Chronic obstructive pulmonary disease. 6. Anticoagulation at home with Eliquis supported. The patient is unsure why. Suspect atrial fibrillation, . 7. Peripheral vascular disease with critical limb ischemia and diabetic foot wound ulceration and gangrene of right 1st toe. 8. Renal failure, suspect chronic. RECOMMENDATIONS: Indications, alternatives, risks, and benefits for angiography and possible intervention have been discussed. The patient agrees. Will proceed with angiography and possible revascularization of the right lower extremity tomorrow as analytical lab analyst availability allows. Job#: [id number] NE
[2018-10-17] MEDS ORDERED: INSULIN DETEMIR 100 UNIT/ML PEN SQ SCH ×2 (21:00)
[2018-10-17] MEDS: DULOXETINE HCL 20 MG DELAYED RELEASE PO SCH (22:23)
[2018-10-17] MEDS: ATORVASTATIN 40 MG TAB PO SCH (22:23)
[2018-10-17] MEDS: ACETAMINOPHEN/CODEINE 300MG - 30MG TAB PO PRN (22:24)
[2018-10-18] VITALS (12 sets, daily range): BP systolic 141–181; BP diastolic 52–85
[2018-10-18] MEDS: MORPHINE SULFATE INJ 4 MG/ML INJ IV PRN ×2 (01:15→06:58)
[2018-10-18] MEDS: PIPER-TAZ 3.375 GM 50 ML IV SCH (05:01)
[2018-10-18] MEDS: SODIUM CHLORIDE 0.45% 1,000 ML IV SCH (05:01)
[2018-10-18 05:10] LABS: BASOPHILS % 0.5 % (0.0-1.0); EOSINOPHILS # (AUTO) 0.3 (0.0-0.4); EOSINOPHILS % 4.2 % (0.0-6.0); HEMATOCRIT 33.2 % (34.2-44.1); HEMOGLOBIN 9.2 g/dL (12.0-16.0); LYMPHOCYTES # (AUTO) 2.1 (1.0-3.2); LYMPHOCYTES % 26.2 % (18.0-39.1); MEAN CORPUSCULAR HEMOGLOBIN 21.4 pg (28-32); MEAN CORPUSCULAR HGB CONC 27.7 g/dL (31-35); MEAN CORPUSCULAR VOLUME 77.4 fL (81-99); MONOCYTES # (AUTO) 0.7 (0.2-0.8); MONOCYTES % 8.3 % (4.4-11.3); NEUTROPHILS # (AUTO) 4.8 (2.1-6.9); NEUTROPHILS % 60.5 % (38.7-80.0); PLATELET COUNT 197 x10e3/uL (140-360); RED BLOOD COUNT 4.29 x10e6/uL (3.6-5.1); RED CELL DISTRIBUTION WIDTH 26.2 % (11.7-14.4)
[2018-10-18 05:19] LABS: PARTIAL THROMBOPLASTIN TIME 29.6 seconds (23.8-35.5); PROTHROMBIN TIME 14.1 seconds (11.9-14.5)
[2018-10-18 05:37] LABS: ALBUMIN 2.5 g/dL (3.5-5.0); ALBUMIN/GLOBULIN RATIO 0.9 (0.8-2.0); ANION GAP 13.3 mmol/L (8-16); CALCIUM 9.2 mg/dL (8.4-10.2); CHOL/HDL RATIO 2.9 (3.0-3.6); CREATININE, SERUM 1.53 mg/dL (0.57-1.11); POTASSIUM 4.3 mmol/L (3.5-5.1)
[2018-10-18] MEDS ORDERED: NIFEDIPINE CR 30 MG TAB PO SCH (06:00)
[2018-10-18 06:44] LABS: ANISOCYTOSIS MODE; ELLIPTOCYTE, RBC SLIGHT; HYPOCHROMASIA MODERATE; PLATELET ESTIMATE ADEQUATE; POIKILOCYTOSIS SLIGHT; RBC MORPHOLOGY COMMENT ABNORMAL
[2018-10-18 06:46] LABS: PLATELET MORPHOLOGY COMMENT FEW GIANT
[2018-10-18] MEDS: BUDESONIDE/FORMOTEROL 160/4.5MCG INHALER INH SCH (06:49)
--- NOTE | 2018-10-18 08:18 | Progress Note ---
DATE: October 18, 2018 SUBJECTIVE: Patient is doing better. Has some discomfort to the forefoot aspect of the right lower extremity and to the distal aspect of the right great toe, and medial aspect of the 1st MPJ. OBJECTIVE VITALS: Afebrile, pulse rate 64, respirations 20, blood pressure 159/74, O2 saturation 100% to 97%. EXTREMITIES: Skin temperature warm to touch on this date. Pedal pulses are diminished. Erythema surrounding the 1st MPJ with gangrenous changes noted to the distal aspect of the right great toe. LABS: Noted. White blood cell count 7.9, hemoglobin 9.2 with a platelet count of 197,000. ASSESSMENT: Gangrene, cellulitis with capsulitis overlying the 1st metatarsophalangeal joint with peripheral artery disease. PLAN: Patient will be undergoing angiogram today. Will let the foot demarcate after angiogram and possible angioplasty is performed. Patient understands she will need an amputation. Level to be determined following the procedures and demarcation of the foot. Will continue to treat conservatively with IV antibiotics and local wound care. Job#: [id number] ND
[2018-10-18] MEDS: PREGABALIN 75 MG CAP PO SCH (09:00)
[2018-10-18] MEDS: METOPROLOL TARTRATE 25 MG TAB PO SCH (09:00)
[2018-10-18] MEDS: CADEXOMER IODINE 30 GM TUBE TOP SCH (09:00)
[2018-10-18] MEDS: ASPIRIN 81 MG CHEW TAB PO SCH (09:00)
[2018-10-18] MEDS ORDERED: MIDAZOLAM HCL 2 MG/2 ML VIAL ONE (10:51)
[2018-10-18] MEDS ORDERED: LIDOCAINE HCL 1% LOCAL INJ 20 ML VIAL ONE ×2 (10:51→11:28)
[2018-10-18] MEDS ORDERED: IOPAMIDOL 300MG/ML 100 ML INFUS..BTL IV ONE ×2 (10:51→12:37)
[2018-10-18] MEDS ORDERED: FENTANYL CITRATE/PF 100MCG/2 ML INJ ONE ×3 (10:51→15:14)
[2018-10-18] MEDS ORDERED: SODIUM CHLORIDE 0.9% 1000ML 1,000 ML ONE ×2 (10:51→11:48)
[2018-10-18] MEDS ORDERED: HEPARIN SOD/SOD CHLORIDE 2,000 ML ONE (10:51)
--- NOTE | 2018-10-18 11:39 | Progress Note ---
DATE: October 18, 2018 CARDIOLOGY PROGRESS NOTE SUBJECTIVE: No complaints today. Plan for angiography and possible revascularization this a.m. Currently being loaded into [employer]. OBJECTIVE VITALS: Temperature 96.9, heart rate 70, blood pressure 146/70, respiratory rate 20, O2 sat 90%. GENERAL: No acute distress. Alert. NECK: No JVD. CHEST: Clear to auscultation. CARDIOVASCULAR: Regular rate and rhythm. Normal S1 and S2. ABDOMEN: Soft. Nontender. EXTREMITIES: No edema. Abnormal dorsalis pedis and posterior tibial pulses bilaterally with 1st right toe black discoloration and loss of fingernail and ulceration. CARDIOVASCULAR MEDICATIONS: Reviewed. 1. Nifedipine 30 mg daily. 2. Aspirin 81 mg daily. 3. Atorvastatin 40 mg nightly. 4. Lovenox 40 mg subcutaneous daily on hold. 5. Metoprolol tartrate 25 mg b.i.d. STUDIES: Reviewed. Creatinine is 1.5. Hemoglobin 9.2, platelets 197. INR 1. AST 8, ALT 6. ASSESSMENT 1. Chronic heart failure, history of. 2. Coronary artery disease, status post bypass. 3. Peripheral arterial disease with prior revascularizations. 4. Hypertension. 5. Dyslipidemia. 6. Diabetes mellitus. 7. On home anticoagulation for unclear reason, suspect due to atrial fibrillation. 8. Renal failure. 9. Anemia. RECOMMENDATIONS: Angiography and possible revascularization to the right lower extremity for limb salvage. Overall guarded and labile prognosis. Further recommendations to follow post procedure. We will attempt limited-dye protocol given issues with renal failure, suspect chronic underlying. Job#: [id number]
[2018-10-18] MEDS ORDERED: HEPARIN SOD (PORCINE) 1000 UNIT/ML 30ML ONE (11:51)
[2018-10-18] MEDS ORDERED: HEPARIN SOD/SOD CHLORIDE 1,000 ML ONE (13:06)
[2018-10-18] MEDS ORDERED: HEPARIN 25000UNITS/0.45% NS 250 ML BAG IV ONE (13:23)
[2018-10-18] MEDS ORDERED: HYDRALAZINE HCL 20 MG/ML VIAL ONE (13:43)
--- NOTE | 2018-10-19 13:32 | Discharge Summary ---
CONSULTANTS 1. Dr. Kendall Calvo. 2. Dr. Tin Monterroso. 3. Dr. Laurent Silva. FINAL DIAGNOSES 1. Emergent transferred to higher level of care secondary to complication of angiogram to the right lower extremity with catheter broken-off. 2. Severe vascular disease. 3. Infected right diabetic foot ulcer greater toe with osteomyelitis of the bone associated with diabetes type 2. SUMMARY: Patient is 73-year-old female with a right greater toe of diabetic infected foot ulcer associated with osteomyelitis of the first metatarsal bone. The patient does have peripheral vascular disease. She has a chronic venous and arterial skin changes. She does have diabetes type 2, insulin required diabetes. She also has hypertension and coronary disease with previous coronary artery bypass surgery. The patient apparently underwent angiogram. The patient has severe vascular disease with complications and subsequent on and off during the procedures, the catheter broke off and equipment was not available to extract the tip of the catheter and balloon. Dr. Selby's surgical note and procedure note will be available for review. Patient subsequently transferred to the [facility] for extraction of the broke off catheter and balloon tip. Patient was stable on transfer. No vascular compromise noticed per Dr. Selby during the procedures and also post procedure with complication as mentioned above. The patient was transferred to the [facility] for higher level of care. Job#: [id number] CODY
--- NOTE | 2018-10-20 01:32 | Operative Report ---
DATE OF PROCEDURE: October 18, 2018 PERIPHERAL ANGIOGRAPHY AND INTERVENTION PROCEDURE INDICATION: Limb salvage procedure in the setting of severe peripheral vascular disease with previous interventions presenting with right first toe gangrene and ulceration in the setting of severely abnormal Doppler ultrasounds. Patient is a severe vasculopath. PROCEDURES PERFORMED 1. Abdominal aortogram. 2. Selective lower extremity angiography, unilateral to the right lower extremity. 3. Third-order catheter placement from left common femoral artery to right common femoral artery. 4. Additional third-order catheter placement to better visualize below the knee vessels from left common femoral artery to right popliteal artery with digital subtraction angiography performed to the below the knee vessels. 5. Right superficial femoral angioplasty percutaneous transluminal angioplasty, 6. Right peroneal artery percutaneous transluminal angioplasty 7. Attempted snaring of an 2.75 x 8 mm balloon tip and shaft, which broke off from balloon delivery system after entrapment in heavily calcified arteries. ESTIMATED BLOOD LOSS: Less than 150 mL. PROCEDURE COMPLICATIONS: At the end of procedure, last balloon used to yield heavily calcified peroneal lesion became entrapped with heavy calcifications at the SFA level. This led to rupture of a distal shaft and balloon tip, attempts to recover with available equipment including snare equipment were met with inability to recover device. Vascular surgical consultation and transferred to high level of care for additional endovascular attempts under vascular surgery backup and with additional equipment was being arranged. The balloon tip and 0.14 wire had been repositioned through the common femoral artery to the right lower extremity to allow potential vascular surgery, endarterectomy of the common femoral artery guided recovery of equipment. PROCEDURE FINDINGS: Renal arteries are patent. The infrarenal aorta was heavily calcified, so the rest of the iliac-femoral vessels and tibioperoneal vessels were visualized. The right common iliac artery had 40% to 50% calcific stenosis and left common iliac had 60% eccentric and calcific area of stenosis, which required gentle manipulation of equipment and sheath in a passage to avoid equipment engagement of this eccentric plaque. The common femoral arteries and profunda femoris arteries are heavily calcified with less than 50% stenosis. The left lower extremities vessels were otherwise not visualized on this angiogram to limit dye exposure. Right SFA had tandem diffuse areas of heavily calcified 70% to 80% stenosis. The popliteal artery had less than 50% calcific stenosis. The right anterior tibial artery was 100% occluded throughout. Right posterior tibial artery was 100% occluded throughout. The right peroneal artery was heavily calcified with areas of 90% stenosis and 100% in tandem proximal to mid portion. These areas were treated with difficulty in yielding as will be described below, but finally with adequate yielding at the end of the procedure, final procedure results included a less than 10% residual stenosis across the right SFA and the right peroneal artery with flow restored linearly to the right foot. For the peroneal artery, 2.5 x 220 Ultraverse balloon was serially inflated to high pressure, 12 to 18 atmospheres, with a focal area of the peroneal artery that did not yield, attempts to engage this with scoring balloon were met with inability to advance the balloon past the popliteal artery given heavy calcifications SFA to popliteal. Therefore, noncompliant balloons were used, 2.5 x 15 [place] Quantum ruptured, 2.5 x 220 Ultraverse balloon also ruptured. The 2.5 x 8 NC Quantum balloon finally was able to yield the lesion of the peroneal, though after initial attempts were performed to re-advance scoring balloon without success following and treatment of the right SFA with 4.0 x 150 Ultraverse balloon treating the SFA areas of stenosis successfully. Still the scoring balloon did not cross and therefore NC Quantum 2.75 x 8 was used to yield successfully the lesion, serial inflations at 25 to 30 atmospheres. When brining back this NC Quantum balloon, the tip of the balloon got entrapped in the calcifications of the SFA and tip and distal shaft broke off from the rest of the shaft, the 0.14 wire remained placed. [place] snare was used to attempt to recover the lesion, multiple attempts with different equipments were performed available in the lab. Equipment was used without success; therefore sheath was achieved and balloon tip and wire were positioned in the right common femoral artery. Patient was continued on heparin drip and transferred for higher level of care under vascular surgery and endovascular surgical consultations. CONCLUSION: Right peroneal artery and right SFA [employer], complicated with distal balloon and balloon shaft breaking up and remaining in body. RECOMMENDATIONS: Aspirin, heparin IV drip, transfer for high level of care; once recovered, consider adding dual antiplatelet therapy. Job#: [id number] EMELY
== END 2018-10-18 15:28 | disposition short-term general hospital (02) | DRG 253 ==
LOC: ER 12:58 → ERHOLD 22:02 → MED/SURG2 10-15 02:29
PROVIDERS: ADMIT Internal Medicine; ATTEND Internal Medicine
PROC: 3E0234Z Introduction of Serum, Toxoid and Vaccine into Muscle, Percutaneous Approach (ICD-10-PCS; 2018-10-15)
PROC: 047K3ZZ Dilation of Right Femoral Artery, Percutaneous Approach (ICD-10-PCS; principal; 2018-10-18)
PROC: 047T3ZZ Dilation of Right Peroneal Artery, Percutaneous Approach (ICD-10-PCS; 2018-10-18)
PROC: B41D1ZZ Fluoroscopy of Aorta and Bilateral Lower Extremity Arteries using Low Osmolar Contrast (ICD-10-PCS; 2018-10-18)
DX: E11.52 Type 2 diabetes mellitus with diabetic peripheral angiopathy with gangrene (principal); L03.115 Cellulitis of right lower limb; I96 Gangrene, not elsewhere classified; I13.0 Hypertensive heart and chronic kidney disease with heart failure and stage 1 through stage 4 chronic kidney disease, or unspecified chronic kidney disease; M86.8X7 Other osteomyelitis, ankle and foot; T82.518A Breakdown (mechanical) of other cardiac and vascular devices and implants, initial encounter; E11.621 Type 2 diabetes mellitus with foot ulcer; E11.22 Type 2 diabetes mellitus with diabetic chronic kidney disease; L97.511 Non-pressure chronic ulcer of other part of right foot limited to breakdown of skin; N18.9 Chronic kidney disease, unspecified; I50.9 Heart failure, unspecified; I48.91 Unspecified atrial fibrillation; I25.10 Atherosclerotic heart disease of native coronary artery without angina pectoris; E11.65 Type 2 diabetes mellitus with hyperglycemia; E78.5 Hyperlipidemia, unspecified; M77.51 Other enthesopathy of right foot and ankle; M20.11 Hallux valgus (acquired), right foot; M20.41 Other hammer toe(s) (acquired), right foot; J44.9 Chronic obstructive pulmonary disease, unspecified; L03.031 Cellulitis of right toe; Z23 Encounter for immunization; E11.69 Type 2 diabetes mellitus with other specified complication; Y71.1 Therapeutic (nonsurgical) and rehabilitative cardiovascular devices associated with adverse incidents; Y92.238 Other place in hospital as the place of occurrence of the external cause; Z95.1 Presence of aortocoronary bypass graft; Z86.73 Personal history of transient ischemic attack (TIA), and cerebral infarction without residual deficits; Z87.891 Personal history of nicotine dependence; Z79.4 Long term (current) use of insulin; Z79.01 Long term (current) use of anticoagulants; Z79.82 Long term (current) use of aspirin
CPT/HCPCS: 36247; 36415; 37224; 37232; 71045; 75625; 75710; 80048; 80053; 80061; 81001; 82550; 82553; 82948; 83036; 83605; 83735; 84439; 84443; 84484; 85025; 85610; 85730; 87040; 87071; 87086; 87186; 87205; 90471; 90714; 93005; 93925; 94640; 96361; 99284; C1725; C1769; J0360; J1644; J1650; J2001; J2250; J2270; J2405; J2543; J3370; J7030; J7050; Q9967

== ENCOUNTER 2019-08-08 15:39 | Emergency (ER) | payer MEDICARE, OTHER ==
[~2019-08-08] VITALS: Ht 167.6 cm; Wt 78.9 kg
[~2019-08-08 15:39] MED LIST changes: +ATORVASTATIN CA20 MG PO; +LYRICA75 MG PO; +METOPROLOL TART25 MG PO; +PANTOPRAZOLE SO40 MG PO; +SYMBICORT 16010.2 GM INH; +fluticasone
[2019-08-08] MEDS ORDERED: PANTOPRAZOLE 40 MG 10ML VIAL IV ONE (15:52)
[2019-08-08] MEDS ORDERED: SODIUM CHLORIDE 0.9% 1000ML 1,000 ML IV STA (15:52)
[2019-08-08] MEDS ORDERED: ASPIRIN 81 MG CHEW TAB PO ONE (16:00)
[2019-08-08] MEDS ORDERED: DIATRIZOATE MEGL/DIATRIZOA SOD 30 ML BTL PO ONE (16:15)
[2019-08-08 16:57] LABS: BASOPHILS # (AUTO) 0.1 (0.0-0.1); BASOPHILS % 0.5 % (0.0-1.0); EOSINOPHILS # (AUTO) 0.6 (0.0-0.4); EOSINOPHILS % 5.2 % (0.0-6.0); HEMATOCRIT 31.1 % (34.2-44.1); HEMOGLOBIN 8.1 g/dL (12.0-16.0); LYMPHOCYTES % 18.5 % (18.0-39.1); MEAN CORPUSCULAR HEMOGLOBIN 17.9 pg (28-32); MEAN CORPUSCULAR VOLUME 68.8 fL (81-99); MONOCYTES # (AUTO) 0.9 (0.2-0.8); MONOCYTES % 8.2 % (4.4-11.3); NEUTROPHILS # (AUTO) 7.4 (2.1-6.9); NEUTROPHILS % 67.2 % (38.7-80.0); PLATELET COUNT 382 x10e3/uL (140-360); RED BLOOD COUNT 4.52 x10e6/uL (3.6-5.1); RED CELL DISTRIBUTION WIDTH 19.1 % (11.7-14.4)
[2019-08-08 16:58] LABS: BILIRUBIN,URINE NEGATIVE (NEGATIVE); CLARITY,URINE SL CLOUDY (CLEAR); COLOR,URINE YELLOW (YELLOW); KETONES,URINE NEGATIVE (NEGATIVE); LEUKOCYTE ESTERASE ,URINE TRACE (NEGATIVE); NITRITE,URINE POSITIVE (NEGATIVE); PROTEIN,URINE DIPSTICK NEGATIVE (NEGATIVE); URINE UROBILINOGEN 0.2 mg/dL (0.2 - 1)
[2019-08-08 17:10] LABS: BACTERIA,URINE MANY /HPF; EPITHELIAL CELLS,URINE FEW /LPF
[2019-08-08 17:17] LABS: ALBUMIN 3.3 g/dL (3.5-5.0); ANION GAP 14.5 mmol/L (8-16); CALCIUM 10.1 mg/dL (8.4-10.2); CREATININE, SERUM 1.58 mg/dL (0.57-1.11); POTASSIUM 4.5 mmol/L (3.5-5.1)
[2019-08-08 17:24] LABS: CREATINE KINASE MB 0.7 ng/mL (0-5.0)
--- NOTE | 2019-08-08 17:59 | Diagnostic Imaging Report ---
EXAMINATION: CHEST SINGLE (PORTABLE) INDICATION: Anemia COMPARISON: None FINDINGS: LINES/TUBES:None LUNGS:The lungs are well-inflated. No focal consolidation or pulmonary edema. PLEURA:No pleural effusion or pneumothorax. MEDIASTINUM:The cardiomediastinal silhouette appears normal in size and shape. Atherosclerotic calcifications of the thoracic aorta. BONES/SOFT TISSUES:No acute osseous injury. Sternotomy wires in place. ABDOMEN:No free air under the diaphragm. IMPRESSION: No focal pneumonia or pulmonary edema. Signed by: Juana Paul MD on 08/08/2019 5:56 PM
[2019-08-08] MEDS ORDERED: FAMOTIDINE 20 MG/2 ML VIAL IV ONE (18:36)
--- NOTE | 2019-08-08 18:53 | Diagnostic Imaging Report ---
EXAM: CT Abdomen and Pelvis WITHOUT contrast INDICATION: Epigastric pain and low hemoglobin. COMPARISON: None. TECHNIQUE: Abdomen and pelvis were scanned utilizing a multidetector helical scanner from the lung base to the pubic symphysis without administration of IV contrast. Absence of intravenous contrast decreases sensitivity for detection of focal lesions and vascular pathology. Coronal and sagittal reformations were obtained. Routine protocol was performed. IV CONTRAST: None. ORAL CONTRAST: Gastrografin and water mixture. RADIATION DOSE: Total DLP: 396.10 mGy*cm Estimated effective dose: (DLP x 0.015 x size factor) mSv COMPLICATIONS: None FINDINGS: LINES and TUBES: None. LOWER THORAX: Coronary calcifications. HEPATOBILIARY: No focal hepatic lesions. Mild prominence of the common bile duct and of the central hepatic biliary tree, probably related to reservoir effect status post cholecystectomy. GALLBLADDER: There is layering sludge in the gallbladder SPLEEN: No splenomegaly. PANCREAS: No focal masses or ductal dilatation. ADRENALS: No adrenal nodules KIDNEYS/URETERS: No hydronephrosis. 5.1 cm simple cyst exophytic of the lower pole of the left kidney anteriorly on image 35 series 2. 1.8 cm high attenuation area exophytic of the posterior upper pole of the left kidney on image 23 series 2 is likely related to lobulation. No stones. GI TRACT: Mild prominence of the gastric rugal folds may be in part related to underdistention. Focal thickening of the gastric wall in the upper body laterally as seen on axial image 22 series 2 and coronal image 39 may represent inflammatory peptic ulcer disease in the proper clinical setting. No abnormal distention or evidence of bowel obstruction. 1.4 cm diverticulum off the second portion of the duodenum medially on image 32 series 2. Appendix is nonvisualized, possible surgically absent without evidence of inflammatory changes in the right lower quadrant. PELVIC ORGANS/BLADDER: The uterus is absent. LYMPH NODES: No lymphadenopathy. VESSELS: There is an IVC filter infrarenal in location. Extensive atherosclerotic calcifications of the aorta iliac artery and major branches. PERITONEUM / RETROPERITONEUM: No free air or fluid. BONES: There are degenerative changes in the lumbar spine. Status post vertebroplasty of T11 again observed. SOFT TISSUES: Bilateral fat-containing inguinal hernias. Small fat-containing periumbilical hernia. IMPRESSION: 1. Findings may reflect gastritis and peptic ulcer disease in the proper clinical setting. Evaluation with upper GI series. Signed by: Dr. Jaswinder Kumar M.D. on 08/08/2019 6:50 PM
[2019-08-08 19:33] VITALS: BP 168/64
== END 2019-08-08 19:39 | disposition home or self-care (01) ==
LOC: ER 15:39
DX: K29.00 Acute gastritis without bleeding (principal); E11.22 Type 2 diabetes mellitus with diabetic chronic kidney disease; I13.0 Hypertensive heart and chronic kidney disease with heart failure and stage 1 through stage 4 chronic kidney disease, or unspecified chronic kidney disease; N18.3 Chronic kidney disease, stage 3 (moderate); I50.9 Heart failure, unspecified; Z79.4 Long term (current) use of insulin; E11.40 Type 2 diabetes mellitus with diabetic neuropathy, unspecified; E11.51 Type 2 diabetes mellitus with diabetic peripheral angiopathy without gangrene; I25.10 Atherosclerotic heart disease of native coronary artery without angina pectoris; K21.9 Gastro-esophageal reflux disease without esophagitis; I25.2 Old myocardial infarction; Z86.711 Personal history of pulmonary embolism; Z86.718 Personal history of other venous thrombosis and embolism; Z79.01 Long term (current) use of anticoagulants; Z86.73 Personal history of transient ischemic attack (TIA), and cerebral infarction without residual deficits; Z79.82 Long term (current) use of aspirin
CPT/HCPCS: 36415; 71045; 74176; 80053; 81001; 82550; 82553; 83690; 84484; 85025; 96374; 99284; C9113; J7030